=== PATIENT | male | born 1995 ===

== ENCOUNTER 2017-01-16 10:44 | Emergency (ER) | payer BC ==
--- NOTE | 2017-02-03 11:49 | UC ---
Mitzi De La Vega Alfonso, scribed for Marlene Pete MD on 01/16/17 at 1230 . General HPI - HPI Summary HPI Summary: This patient is a 21 year old M presenting to [facility] accompanied by a male coworker with a chief complaint of a sore throat since 3 days ago. Symptoms aggravated by nothing. Symptoms alleviated by nothing. Patient reports cough ( this morning), left rib cramp (like a nail in my side), and dyspnea with deep breaths. Patient denies fever, and rash. Pt declines a CXR. Patients medications reviewed this visit. Patients allergies reviewed this visit. - History of Current Complaint Chief Complaint: UCRespiratory Stated Complaint: SORE THROAT COUGH RIB PAIN Time Seen by Provider: 01/16/17 12:19 Hx Obtained From: Patient Onset/Duration: Sudden Onset, Lasting Days - 3, Still Present Timing: Constant Onset Severity: Moderate Current Severity: Moderate Aggravating: nothing Alleviating: nothing Associated Signs & Symptoms: Positive: Other - Patient reports cough (this morning), left rib cramp (like a nail in my side), and dyspnea with deep breaths. Patient denies fever, and rash. - Allergy/Home Medications Allergies/Adverse Reactions: Allergies Allergy/AdvReac Type Severity Reaction Status Date / Time No Known Allergies Allergy Verified 01/16/17 11:19 PMH/Surg Hx/FS Hx/Imm Hx Previously Healthy: Yes - Surgical History Surgical History: None - Family History Known Family History: Positive: Other - Negative pneumothorax. Negative: Cardiac Disease, Diabetes - Social History Alcohol Use: Daily Alcohol Amount: 3-4 drinks Substance Use Type: None Smoking Status (MU): Light Every Day Tobacco Smoker Amount Used/How Often: 1/2 PPD Review of Systems Constitutional: Negative Skin: Other - negative rash ENT: Sore Throat Respiratory: Cough, Other - Dyspnea with deep breaths Musculoskeletal: Other: - Left rib cramp All Other Systems Reviewed And Are Negative: Yes Physical Exam Triage Information Reviewed: Yes Appearance: Well-Nourished Vital Signs: Initial Vital Signs Temp 98.1 F 01/16/17 11:20 Pulse 77 01/16/17 11:20 Resp 16 01/16/17 11:20 BP 133/74 01/16/17 11:20 Pulse Ox 100 01/16/17 11:20 Vital Signs Reviewed: Yes Eye Exam: Normal ENT: Positive: Other: - Dull and retracted TM, Wax in the left ear. Swollen tonsils mildly. Equal tonsils. No sores at tonsils. Air way intact. Pharynx erythematous. Neck exam: Normal Neck: Positive: No Lymphadenopathy Respiratory: Positive: Other: - Right anterior lateral lower ribs tender to touch, deep breath, and full respiration. Cardiovascular: Positive: RRR, Other: - good general skin color, good capillary refill Abdomen Description: Positive: Nontender, No Organomegaly, Soft Bowel Sounds: Positive: Present Musculoskeletal Exam: Normal Musculoskeletal: Positive: Strength Intact Neurological Exam: Normal Neurological: Positive: Alert Psychological: Positive: Age Appropriate Behavior Course/Dx - Course Course Of Treatment: RST negative. Suspect non-strep pharyngitis. Also sx costochondritis. Pt is interested in starting abx (z-max), aware that viral etiology could be a factor. Will seek medical attention for worse or new problems. F/u PCP routine appt. Questions answered as posed to the best of my ability. - Differential Dx - Multi-Symptom Provider Diagnoses: pharyngitis. costochondritis Discharge - Discharge Plan Condition: Stable Disposition: HOME Prescriptions: Azithromyxin MINI (NF) [Z-Mini (Zithromax) 250 mg tabs #6] 2 tab PO .TODAY, THEN 1 DAILY #6 tab Ibuprofen TAB* [Motrin TAB* 600 MG] 600 mg PO Q8H PRN #30 tab PRN Reason: Pain Patient Education Materials: Pharyngitis (ED), Costochondritis (ED) Forms: *Work Release Referrals: [facility] [Outside] No Primary Care Phys,NOPCP [Primary Care Provider] - Additional Instructions: Please seek medical attention for worse or new problems, especially if pain does not get better, or worsens. Follow up primary care physician if possible in a couple weeks. The documentation as recorded by the Mitzi blanca Alfonso accurately reflects the service I personally performed and the decisions made by me, Marlene Pete MD.
== END 2017-01-16 12:47 | disposition home or self-care (01) ==
LOC: UCEAST 10:44
DX: J02.9 Acute pharyngitis, unspecified (principal); M94.0 Chondrocostal junction syndrome [Tietze]; F17.210 Nicotine dependence, cigarettes, uncomplicated
CPT/HCPCS: 87651; 99202; G0463